=== PATIENT | female | born 1995 | race Caucasian/White ===

== ENCOUNTER 2018-08-31 10:44 | Emergency (ER) | payer MEDICAID ==
[~2018-08-31] VITALS: Ht 167.6 cm; Wt 126.1 kg
[2018-08-31 11:01] VITALS: BP 143/93; Ht 167.6 cm; Wt 126.1 kg
== END 2018-08-31 11:57 | disposition home or self-care (01) ==
LOC: ED 10:44
DX: J03.90 Acute tonsillitis, unspecified (principal)